=== PATIENT | female | born 1965 | race Asian ===

== ENCOUNTER → 2019-06-03 | Outpatient (CLI) | payer OTHER ==
--- NOTE | 2019-06-03 14:10 | REP ---
TWO-VIEW CHEST: REASON: History of PPD. PRIORS: None. FINDINGS: The superior mediastinal structures are midline. The cardiac silhouette is unremarkable in size, shape, and position. The diaphragmatic surfaces of the lungs are regular, and the costophrenic angles are clear. The pulmonary gillis are clear. The imaged osseous structures are intact. IMPRESSION: There is no acute cardiopulmonary disease. COMMENT: If clinic suspicion is high, CT is more sensitive. Electronically Signed by Jairo Hernández DO 06/03/2019 02:22 P
== END ==
LOC: M WUC 12:10
PROVIDERS: ATTEND Physician Assistant
DX: Z02.1 Encounter for pre-employment examination (principal)